=== PATIENT | male | born 1960 | race Caucasian/White ===

== ENCOUNTER 2020-07-11 20:00 | Inpatient (IN) | payer BC ==
[2020-07-11] MEDS ORDERED: SODIUM CHLORIDE 0.9% 1,000 ML IV STA (20:49)
[2020-07-11] MEDS ORDERED: HYDROmorphone 1 MG/ML 1 ML SYRINGE IVP STA ×2 (20:50→22:56)
--- NOTE | 2020-07-11 21:22 | ED ---
Back Pain HPI - General Chief Complaint: Back Pain/Injury Stated Complaint: Back pain Time Seen by Provider: 07/11/20 20:17 Source: patient Limitations: no limitations - History of Present Illness Initial Comments: Dmitri is a 59yo M with her recent medical history of hospitalization on 06/24 at which time he was found to be in ventricular tachycardia and then apparently have episodes of bradycardia, he underwent cardiac catheterization, 2 stents placed, pacemaker placed and was discharged home with a Zoll LifeVest. Patient states that he has been feeling back to normal for the past couple of days. Patient states that today he [place] some yardwork including weed eating, he suddenly developed pain in his back and flank. Pain felt like a severe muscle spasm of his entire right side of his back and flank with radiation around to his hip. No associated chest pain no the pain did radiate up to his ribs. Patient denied any palpitation shortness of breath abdominal pain nausea vomiting or change in bowel or bladder habits. No recent illness. - Related Data Home Medications Medication Instructions Recorded Confirmed Albuterol Sulfate [Proair Hfa] 1 - 2 puff INHALATION RT-Q6H PRN 07/11/20 07/11/20 Aspirin EC [Ecotrin Low Dose] 81 mg PO DAILY 07/11/20 07/11/20 Atorvastatin [Lipitor] 80 mg PO HS 07/11/20 07/11/20 Budesonide/Formoterol Fumarate 1 puff INHALATION RT-BID 07/11/20 07/11/20 [Symbicort 80-4.5 Mcg Inhaler] Ergocalciferol [Vitamin D2 (1250 1,250 mcg PO MO 07/11/20 07/11/20 Mcg = [id number] Iu)] Folic Acid 1 mg PO DAILY 07/11/20 07/11/20 Furosemide [Lasix] 40 mg PO DAILY 07/11/20 07/11/20 Metoprolol Succinate [Toprol XL] 50 mg PO DAILY 07/11/20 07/11/20 Omeprazole 20 mg PO DAILY 07/11/20 07/11/20 Prasugrel [Effient] 10 mg PO DAILY 07/11/20 07/11/20 Tofacitinib Citrate [Xeljanz Xr] 11 mg PO DAILY 07/11/20 07/11/20 lisinopriL [Zestril] 2.5 mg PO DAILY PRN 07/11/20 07/11/20 Allergies Allergy/AdvReac Type Severity Reaction Status Date / Time No Known Allergies Allergy Verified 07/11/20 20:57 Review of Systems ROS Statement: Those systems with pertinent positive or pertinent negative responses have been documented in the HPI. ROS Other: All systems not noted in ROS Statement are negative. Past Medical History Past Medical History: No Reported History History of Any Multi-Drug Resistant Organisms: None Reported Past Surgical History: Heart Catheterization With Stent, Pacemaker Past Psychological History: No Psychological Hx Reported Smoking Status: Current some day smoker Past Alcohol Use History: Occasional Past Drug Use History: None Reported General Exam - General Exam Comments Initial Comments: Physical Exam GENERAL: Patient is well-developed and well-nourished Acute distress secondary to pain Diaphoretic HENT: Normocephalic, Atraumatic. EYES: PERRL, EOMI PULMONARY: Unlabored respirations. No audible rales rhonchi or wheezing was noted. CARDIOVASCULAR: There is a regular rate and rhythm without any murmurs gallops or rubs. LifeVest in place ABDOMEN: Soft and nontender with normal bowel sounds. No pulsatile mass SKIN: Skin is clear with no lesions or rashes and otherwise unremarkable. : Deferred NEUROLOGIC: Patient is alert and oriented x3. Moving all extremities spontaneously MUSCULOSKELETAL: Normal extremities with adequate strength and full range of motion. No lower extremity swelling or edema. No calf tenderness. PSYCHIATRIC: Normal psychiatric evaluation. Limitations: no limitations Course Vital Signs 07/11/20 07/11/20 07/11/20 20:01 21:55 23:14 Temperature 97.7 F Pulse Rate 64 68 72 Respiratory 26 H 20 18 Rate Blood Pressure 137/84 136/83 129/88 O2 Sat by Pulse 92 L 95 95 Oximetry Medical Decision Making - Medical Decision Making The patient was seen and evaluated, history is obtained from the patient and at bedside and review of his my chart record from [facility] Labs and imaging were obtained Troponin is mildly elevated at 0.3 today 3 weeks ago troponin was over 1500 so it is uncertain if this is residual or due to cardiac ischemia today Lactic acid is mildly elevated Patient reported only minimal improvement in his discomfort after [address] imaging reported no acute findings Patient was treated with Dilaudid and Norflex Patient care discussed with Dr. Holder [facility] physician group who accepts admission to trend troponin and manage pain - Lab Data Result diagrams: 07/11/20 21:12 07/11/20 21:12 Lab Results 07/11/20 07/11/20 07/11/20 Range/Units 21:12 21:12 21:12 WBC 8.7 (3.8-10.6) k/uL RBC 3.43 L (4.30-5.90) m/uL Hgb 12.0 L (13.0-17.5) gm/dL Hct 34.1 L (39.0-53.0) % MCV 99.3 (80.0-100.0) fL MCH 35.0 (25.0-35.0) pg MCHC 35.2 (31.0-37.0) g/dL RDW 13.2 (11.5-15.5) % Plt Count 335 (150-450) k/uL MPV 7.5 Neutrophils % 61 % Lymphocytes % 29 % Monocytes % 7 % Eosinophils % 1 % Basophils % 1 % Neutrophils # 5.3 (1.3-7.7) k/uL Lymphocytes # 2.5 (1.0-4.8) k/uL Monocytes # 0.6 (0-1.0) k/uL Eosinophils # 0.1 (0-0.7) k/uL Basophils # 0.1 (0-0.2) k/uL PT 10.8 (9.0-12.0) sec INR 1.0 (<1.2) APTT 23.4 (22.0-30.0) sec Sodium (137-145) mmol/L Potassium (3.5-5.1) mmol/L Chloride (98-107) mmol/L Carbon Dioxide (22-30) mmol/L Anion Gap mmol/L BUN (9-20) mg/dL Creatinine (0.66-1.25) mg/dL Est GFR (CKD-EPI)AfAm (>60 ml/min/1.73 sqM) Est GFR (CKD-EPI)NonAf (>60 ml/min/1.73 sqM) Glucose (74-99) mg/dL Plasma Lactic Acid Jesus (0.7-2.0) mmol/L Calcium (8.4-10.2) mg/dL Magnesium (1.6-2.3) mg/dL Total Bilirubin (0.2-1.3) mg/dL AST (17-59) U/L ALT (4-49) U/L Alkaline Phosphatase (38-126) U/L Creatine Kinase (55-170) U/L Troponin I (0.000-0.034) ng/mL Total Protein (6.3-8.2) g/dL Albumin (3.5-5.0) g/dL Urine Color Yellow Urine Appearance Clear (Clear) Urine pH 6.0 (5.0-8.0) Ur Specific [place] 1.030 (1.001-1.035) Urine Protein Negative (Negative) Urine Glucose (UA) Negative (Negative) Urine Ketones Negative (Negative) Urine Blood Negative (Negative) Urine Nitrite Negative (Negative) Urine Bilirubin Negative (Negative) Urine Urobilinogen 2.0 (<2.0) mg/dL Ur Leukocyte Esterase Negative (Negative) 07/11/20 07/11/20 07/11/20 Range/Units 21:12 21:12 21:12 WBC (3.8-10.6) k/uL RBC (4.30-5.90) m/uL Hgb (13.0-17.5) gm/dL Hct (39.0-53.0) % MCV (80.0-100.0) fL MCH (25.0-35.0) pg MCHC (31.0-37.0) g/dL RDW (11.5-15.5) % Plt Count (150-450) k/uL MPV Neutrophils % % Lymphocytes % % Monocytes % % Eosinophils % % Basophils % % Neutrophils # (1.3-7.7) k/uL Lymphocytes # (1.0-4.8) k/uL Monocytes # (0-1.0) k/uL Eosinophils # (0-0.7) k/uL Basophils # (0-0.2) k/uL PT (9.0-12.0) sec INR (<1.2) APTT (22.0-30.0) sec Sodium 139 (137-145) mmol/L Potassium 4.2 (3.5-5.1) mmol/L Chloride 105 (98-107) mmol/L Carbon Dioxide 24 (22-30) mmol/L Anion Gap 10 mmol/L BUN 13 (9-20) mg/dL Creatinine 1.01 (0.66-1.25) mg/dL Est GFR (CKD-EPI)AfAm >90 (>60 ml/min/1.73 sqM) Est GFR (CKD-EPI)NonAf 81 (>60 ml/min/1.73 sqM) Glucose 88 (74-99) mg/dL Plasma Lactic Acid Jesus 2.3 H* (0.7-2.0) mmol/L Calcium 9.2 (8.4-10.2) mg/dL Magnesium 2.0 (1.6-2.3) mg/dL Total Bilirubin 0.5 (0.2-1.3) mg/dL AST 31 (17-59) U/L ALT 37 (4-49) U/L Alkaline Phosphatase 70 (38-126) U/L Creatine Kinase 115 (55-170) U/L Troponin I 0.346 H* (0.000-0.034) ng/mL Total Protein 6.5 (6.3-8.2) g/dL Albumin 3.7 (3.5-5.0) g/dL Urine Color Urine Appearance (Clear) Urine pH (5.0-8.0) Ur Specific [place] (1.001-1.035) Urine Protein (Negative) Urine Glucose (UA) (Negative) Urine Ketones (Negative) Urine Blood (Negative) Urine Nitrite (Negative) Urine Bilirubin (Negative) Urine Urobilinogen (<2.0) mg/dL Ur Leukocyte Esterase (Negative) - EKG Data -: EKG Interpreted by Me EKG Comments: EKG was obtained due to recent cardiac procedure presenting with back and abdominal pain, EKG obtained at 2103 rate is 73 rhythm is sinus there is a alejandro l axis, MS 1:30, QRS 88, QTC prolonged at 480 there are no acute ST elevations or depressions no evidence of acute ischemia or infarction. Disposition Clinical Impression: Mechanical back pain, Elevated troponin Disposition: ADMITTED IP TO THIS HOSP Condition: Stable Is patient prescribed a controlled substance at d/c from ED?: No Referrals: Nonstaff,Physician [Primary Care Provider] - 1-2 days
[2020-07-11 21:24] LABS: Basophils # (A) 0.1 k/uL (0-0.2); Basophils % (A) 1 %; Eosinophils # (A) 0.1 k/uL (0-0.7); Eosinophils % (A) 1 %; HCT 34.1 % (39.0-53.0); Lymphocytes # (A) 2.5 k/uL (1.0-4.8); Lymphocytes % (A) 29 %; MCHC 35.2 g/dL (31.0-37.0); MCV 99.3 fL (80.0-100.0); Mean Platelet Volume 7.5; Monocytes # (A) 0.6 k/uL (0-1.0); Monocytes % (A) 7 %; Neutrophils # (A) 5.3 k/uL (1.3-7.7); Neutrophils % (A) 61 %; Platelet Count 335 k/uL (150-450); RBC 3.43 m/uL (4.30-5.90); RDW 13.2 % (11.5-15.5); WBC 8.7 k/uL (3.8-10.6)
[2020-07-11 21:33] LABS: ALT 37 U/L (4-49); AST 31 U/L (17-59); African American GFR (CKD) >90 (>60 ml/min/1.73 sqM); Albumin 3.7 g/dL (3.5-5.0); Alkaline Phosphatase 70 U/L (38-126); Anion Gap 10 mmol/L; Blood Urea Nitrogen 13 mg/dL (9-20); Calcium 9.2 mg/dL (8.4-10.2); Carbon Dioxide 24 mmol/L (22-30); Chloride 105 mmol/L (98-107); Creatine Kinase 115 U/L (55-170); Glucose 88 mg/dL (74-99); Non-African American GFR(CKD) 81 (>60 ml/min/1.73 sqM); Potassium 4.2 mmol/L (3.5-5.1); Sodium 139 mmol/L (137-145); Total Bilirubin 0.5 mg/dL (0.2-1.3); Total Protein 6.5 g/dL (6.3-8.2)
[2020-07-11 21:42] LABS: Partial Thromboplastin Time 23.4 sec (22.0-30.0); Prothrombin Time 10.8 sec (9.0-12.0)
--- NOTE | 2020-07-11 21:53 | XR ---
EXAMINATION TYPE: XR chest 2V DATE OF EXAM: 07/11/2020 COMPARISON: NONE HISTORY: Back pain TECHNIQUE: 3 views FINDINGS: There is no heart failure nor confluent pneumonic infiltrate. Heart and mediastinum appear normal. There is left axillary pacemaker. There is no pleural effusion. IMPRESSION: No active cardiopulmonary disease. Normal heart.
[2020-07-11 22:50] LABS: Appearance,Urine Clear (Clear); Color,Urine Yellow; Protein,Urine Negative (Negative)
[2020-07-11 22:51] LABS: Bilirubin,Urine Negative (Negative); Blood,Urine Negative (Negative); Glucose,Urine (UA) Negative (Negative); Ketones,Urine Negative (Negative); Leukocyte Esterase,Urine Negative (Negative); Nitrite,Urine Negative (Negative)
[2020-07-11] MEDS ORDERED: ORPHENADRINE 30 MG/ML 2 ML VIAL IM STA (22:56)
--- NOTE | 2020-07-11 23:00 | CT ---
EXAMINATION TYPE: CT angio thor/abd pel aorta DATE OF EXAM: 07/11/2020 COMPARISON: None HISTORY: Back/chest pain. Recent sx for pacemaker, pt not able to lift LT arm, wearing defib vest. CT DLP: 1068.9 mGycm Automated exposure control for dose reduction was used. CONTRAST: Performed with IV Contrast, patient injected with 100 mL of Isovue 370. Images obtained from the thoracic inlet to the floor the pelvis with IV contrast. There are 3-D post processed images. There is some bullous emphysema and the upper lobes. The lungs are clear of consolidation. There is n o mediastinal adenopathy. Thoracic aorta is intact. There is no aneurysm or dissection. There are no hilar masses. I see no filling defects in the pulmonary arteries. Heart size is fairly normal. There is no pericardial effusion. Liver spleen stomach pancreas gallbladder appear intact. The bile ducts are not dilated. There is no adrenal mass. Kidneys show satisfactory contrast opacification. There is no hydronephrosi s. There is no retroperitoneal adenopathy. The ureters are not dilated. The bladder distends smoothly . There is no inguinal hernia. There are multiple sigmoid diverticula. There is no diverticulitis. There is no sign of thickened matias endix. The thoracic aorta is intact. There is no aneurysm or dissection. The abdominal aorta is intact. Ther e is arterial flow in the celiac artery and superior mesenteric artery. There is arterial flow in bot h renal arteries. I see no hemodynamic stenosis. There is arterial flow in the iliac and femoral pako lynnette. There is atherosclerotic plaque in the iliac arteries. No hemodynamic stenosis seen. The bony pelvis is intact. The hip joints appear intact. There is some hypertrophic spurring of the a cetabula. There is mild lumbar dextroscoliosis. There is multilevel thoracic and lumbar spondylotic c hanges. There is no significant compression deformity. Sternum is intact. I see no evidence of a rib fracture. IMPRESSION: Bullous emphysema. No suspicious pulmonary mass. No evidence of arterial aneurysm or dissection. No evidence of pulmonary embolism.
[2020-07-11] MEDS ORDERED: NITROGLYCERIN SL TABS 0.4 MG TAB SUBLINGUAL PRN (23:17)
[2020-07-12] MEDS ORDERED: KETOROLAC 15 MG/ML 1 ML VIAL IVP STA (03:19)
--- NOTE | 2020-07-12 03:28 | P.HPIM ---
History of Present Illness H&P Date: 07/11/20 Chief Complaint: left flank pain 59-year-old male with coronary artery disease Patient comes in with sudden onset left-sided flank pain radiating to the back described it as sharp severe pain 10 out of 10 in severity worse with movement denies any associated trauma happened while he was working in the yard trimming, patient denies any associated nausea vomiting fevers or chills denies any diarrhea or GI bleeding denies any hematuria or urinary changes or symptoms of her happened in the past he denies any focal neuro deficits in his lower extremities. Patient recently was at [facility] about 3 weeks ago diagnosed with ventricular tachycardia had a left heart cath found to have obstructive coronary artery disease he got 2 stents and was discharged with a LifeVest at that time it's documented that he had good left ventricular ejection fraction. Patient has been feeling well since discharge from [facility] he denies any shocking from his eye past. In the ED workup was pretty much unremarkable include CTA of the chest to rule out aortic dissection which was negative. Troponin slightly elevated at 0.34 could not compared to a baseline of highly sensitive troponin which was 1500 at [facility] Upon interviewing the patient he was still complaining of left flank pain Review of Systems Pertinent positives as noted in HPI. All other systems were reviewed and are negative Past Medical History Past Medical History: Coronary Artery Disease (CAD) History of Any Multi-Drug Resistant Organisms: None Reported Past Surgical History: Heart Catheterization With Stent, Pacemaker Date of Last Stent Placement:: 06/24/20 Type of Cardiac Device: Permanent Pacemaker Device Placement Date:: 06/24/20 Past Psychological History: No Psychological Hx Reported Smoking Status: Former smoker Past Alcohol Use History: Occasional Past Drug Use History: None Reported - Past Family History family Family Medical History: No Reported History Medications and Allergies Home Medications Medication Instructions Recorded Confirmed Type Albuterol Sulfate [Proair Hfa] 1 - 2 puff INHALATION RT-Q6H PRN 07/11/20 07/11/20 History Aspirin EC [Ecotrin Low Dose] 81 mg PO DAILY 07/11/20 07/11/20 History Atorvastatin [Lipitor] 80 mg PO HS 07/11/20 07/11/20 History Budesonide/Formoterol Fumarate 1 puff INHALATION RT-BID 07/11/20 07/11/20 History [Symbicort 80-4.5 Mcg Inhaler] Ergocalciferol [Vitamin D2 (1250 1,250 mcg PO MO 07/11/20 07/11/20 History Mcg = 93566 Iu)] Folic Acid 1 mg PO DAILY 07/11/20 07/11/20 History Furosemide [Lasix] 40 mg PO DAILY 07/11/20 07/11/20 History Metoprolol Succinate [Toprol XL] 50 mg PO DAILY 07/11/20 07/11/20 History Omeprazole 20 mg PO DAILY 07/11/20 07/11/20 History Prasugrel [Effient] 10 mg PO DAILY 07/11/20 07/11/20 History Tofacitinib Citrate [Xeljanz Xr] 11 mg PO DAILY 07/11/20 07/11/20 History lisinopriL [Zestril] 2.5 mg PO DAILY PRN 07/11/20 07/11/20 History Allergies Allergy/AdvReac Type Severity Reaction Status Date / Time No Known Allergies Allergy Verified 07/11/20 20:57 Physical Exam Vitals: Vital Signs Temp Pulse Resp BP Pulse Ox 07/12/20 00:25 18 07/11/20 23:14 72 18 129/88 95 07/11/20 21:55 68 20 136/83 95 07/11/20 20:01 97.7 F 64 26 H 137/84 92 L Intake and Output 07/11/20 07/11/20 07/12/20 14:59 22:59 06:59 Other: Weight 97.522 kg 97.522 kg Constitutional: No acute distress, conversant, pleasant Eyes: Anicteric sclerae, moist conjunctiva, Pupils equal round reactive to light ENMT: NC/AT Oropharynx clear, no erythema, or exudates Neck: Supple, FROM, no masses, or JVD No carotid bruits No thyromegaly Lungs: Clear to auscultation Clear to percussion Normal respiratory effort, no accessory muscle use Cardiovascular: Heart regular in rate and rhythm, No murmurs, gallops, or rubs No peripheral edema, LifeVest in place Abdominal: Soft, no tenderness to palpation of the left costovertebral angle Nontender, no guarding, rebound or rigidity Abdomen moving with respiration Normoactive bowel sounds No hepatomegaly, No splenomegaly No palpable mass No abdominal wall hernia noted Skin: Normal temperature, tone, texture, turgor No induration No subcutaneous nodules No rash, lesions No ulcers Extremities: No digital cyanosis No clubbing Pedal pulses intact and symmetrical Radial pulses intact and symmetrical No calf tenderness Psychiatric: Alert and oriented to person, place and time Appropriate affect fair judgement Neuro Muscles Strength 5/5 in all 4 extremities Sensation to light touch grossly present throughout Cranial nerves II-XII grossly intact No focal sensory deficits Lymphatics: no palpable cervical or supraclavicular , or inguinal lymph nodes Results CBC & Chem 7: 07/11/20 21:12 07/11/20 21:12 Labs: Abnormal Lab Results - Last 24 Hours (Table) 07/11/20 07/11/20 07/11/20 Range/Units 21:12 21:12 21:12 RBC 3.43 L (4.30-5.90) m/uL Hgb 12.0 L (13.0-17.5) gm/dL Hct 34.1 L (39.0-53.0) % Plasma Lactic Acid Jesus 2.3 H* (0.7-2.0) mmol/L Troponin I 0.346 H* (0.000-0.034) ng/mL 07/11/20 Range/Units 23:39 RBC (4.30-5.90) m/uL Hgb (13.0-17.5) gm/dL Hct (39.0-53.0) % Plasma Lactic Acid Jesus (0.7-2.0) mmol/L Troponin I 0.359 H* (0.000-0.034) ng/mL Thrombosis Risk Factor Assmnt - Choose All That Apply Any of the Below Risk Factors Present?: Yes Each Factor Represents 1 point: Age 41-60 years, Obesity (BMI >25) Thrombosis Risk Factor Assessment Total Risk Factor Score: 2 Thrombosis Risk Factor Assessment Level: Low Risk Assessment and Plan Assessment: Left flank pain rule out muscle spasms versus kidney stone Pain control with opiates Trial of one dose of Toradol Check CT abdomen and pelvis without contrast rule out kidney stones Gentle IV fluid hydration Slightly elevated troponin Recent history of coronary artery disease status post stents and ventricular tachycardia status post LifeVest Left ventricular ejection fraction reported to be good Continue cardiac meds Cardiac monitoring Trend troponins CT of the chest did not show evidence of aortic dissection Mild anemia Denies GI bleeding Monitor hemoglobin Mild elevation lactic acid Gentle IV fluid hydration as above full code DVT prophylaxis: heparin sc tid Discussed with: Patient, ER, RN Anticipated length of stay < than [address]: home A total of 75 minutes was spent on the care of this complex patient more than 50% of the time was spent in counseling and care coordination.
[2020-07-12 03:36] LABS: Cholesterol 102 mg/dL (<200); HDL Cholesterol 26 mg/dL (40-60); LDL Cholesterol,Calculated 61 mg/dL (0-99); Triglycerides 75 mg/dL (<150)
[2020-07-12] MEDS: SODIUM CHLORIDE 0.9% 1,000 ML IV SCH (04:08)
[2020-07-12] MEDS: ATORVASTATIN 80 MG TAB PO SCH ×2 (04:08→21:15)
[2020-07-12] MEDS ORDERED: MORPHINE SULFATE 4 MG/ML SYRINGE IVP STA (06:26)
--- NOTE | 2020-07-12 08:25 | CT ---
EXAMINATION TYPE: CT abdomen pelvis wo con DATE OF EXAM: 07/12/2020 COMPARISON: 07/11/2020 HISTORY: Lt flank pain CT DLP: 1073 mGycm Automated exposure control for dose reduction was used. TECHNIQUE: Helical acquisition of images was performed from the lung bases through the pelvis. FINDINGS: LUNG BASES: 3 mm nodules in the right lower lobe. There is coarsened interstitium and interstitial in filtrates. LIVER/GB: Increased density within the gallbladder likely represents vicarious excretion of contrast. PANCREAS: Nonspecific pancreatic calcifications noted. SPLEEN: No significant abnormality is seen. ADRENALS: No significant abnormality is seen. KIDNEYS: There remains contrast within the renal collecting systems from recent CT scan which limits assessment for renal calculus. No obvious hydronephrosis. ADENOPATHY: None visualized. OSSEOUS STRUCTURES: Hypertrophic and degenerative changes spine. Arthropathy of the hips. BOWEL: Bowel gas pattern nonspecific with changes of diverticulosis. OTHER: Atherosclerotic change aorta appears normal caliber. IMPRESSION: 1. No hydronephrosis. Residual contrast within the collecting systems from the recent postcontrast CT limits assessment for renal calculi. Hypodense lesion right kidney is indeterminant. 2. coarsened interstitial changes correlate for interstitial pneumonitis or chronic lung disease. Rig ht-sided subclavian millimeter nodule too small to characterize 6 month follow-up could be obtained o n a short-term basis.
[2020-07-12] MEDS ORDERED: NON FORMULARY DRUG (Aspirin Ec 81 MG Tablet.Dr) PO SCH (09:00)
[2020-07-12] MEDS ORDERED: METOPROLOL TARTRATE 25 MG TAB PO SCH (09:00)
[2020-07-12] MEDS: SYMBICORT 80-4.5 MCG INHALER INHALATION SCH ×3 (09:24→20:53)
--- NOTE | 2020-07-12 11:38 | P.PN ---
Subjective Progress Note Date: 07/12/20 Principal diagnosis: Right hip pain Patient was seen and evaluated by me this morning. He was tossing and turning in bed secondary to right hip pain. Patient said that he did not have any fall or trauma. He is rating his pain as 8 out of 10 and report that he is unable to stand up. Pain is mostly in the posterior hip/gluteal area. There is limited range of motion of the hip secondary to pain. No imaging available for me to review. Objective - Vital Signs Vital signs: Vital Signs Temp 97.7 F 07/12/20 00:03 Pulse 78 07/12/20 00:03 Resp 18 07/12/20 00:25 BP 133/76 07/12/20 00:03 Pulse Ox 93 L 07/12/20 00:03 Intake & Output 07/11/20 07/12/20 07/12/20 18:59 06:59 18:59 Weight 97.522 kg Other: # Voids 1 - Exam General: The patient is awake and alert, in no distress Eye: there is normal conjunctiva bilaterally. Neck: The neck is supple, there is no JVD. Cardiovascular: Normal S1-S2, no S3-S4, no murmurs. Respiratory: Lungs clear to auscultation bilaterally Gastrointestinal: Abdomen is soft, nontender Musculoskeletal: There is no pedal edema. Neurological:. Speech is normal. Skin: Skin is warm and dry - Labs CBC & Chem 7: 07/11/20 21:12 07/11/20 21:12 Labs: Abnormal Lab Results - Last 24 Hours (Table) 07/11/20 07/11/20 07/11/20 Range/Units 21:12 21:12 21:12 RBC 3.43 L (4.30-5.90) m/uL Hgb 12.0 L (13.0-17.5) gm/dL Hct 34.1 L (39.0-53.0) % Plasma Lactic Acid Jesus 2.3 H* (0.7-2.0) mmol/L Troponin I 0.346 H* (0.000-0.034) ng/mL HDL Cholesterol (40-60) mg/dL 07/11/20 07/12/20 07/12/20 Range/Units 23:39 02:52 02:52 RBC (4.30-5.90) m/uL Hgb (13.0-17.5) gm/dL Hct (39.0-53.0) % Plasma Lactic Acid Jseus (0.7-2.0) mmol/L Troponin I 0.359 H* 0.323 H* (0.000-0.034) ng/mL HDL Cholesterol 26 L (40-60) mg/dL Assessment and Plan Assessment: This is a 59-year-old male with past medical history noted below presented to the emergency room with right hip pain. Patient was evaluated in the E and placed on observation for further management of his medical problems noted below. 1. Right hip pain, exact etiology unclear. Patient denies any fall or trauma. I would obtain an x-ray of the right hip and lumbar spine. Start patient on Flexeril 3 times a day and [place] as needed. Consult orthopedic for further evaluation. 2. Coronary artery disease status post recent 2 stent placement with [facility]. Continue medical management. On dual antiplatelet therapy 3. Status post pacemaker implantation at [facility] 3 weeks ago currently on the LifeVest 4. Troponin elevation, most likely troponin leak secondary to recent heart cath even though unusual as heart as was 3 weeks ago. Patient denies any chest pain. 12-lead EKG showed no acute ischemic changes. I would consult cardiology for further evaluation 5. Underlying rheumatoid arthritis Today, I reviewed his medication list and lab work results urinalysis is unremarkable. Consult PT. Appreciate mergers and acquisitions consultant's recommendations.
[2020-07-12] MEDS: NON FORMULARY DRUG (Tofacitinib Citrate [Xeljanz Xr] 11 MG Tab.Er.24h) PO SCH (12:10)
[2020-07-12] MEDS: HEPARIN SODIUM,PORCINE/PF 5,000 UNIT/0.5 ML SYRINGE SQ SCH ×2 (12:10→16:25)
[2020-07-12] MEDS: METOPROLOL SUCCINATE (ER) 50 MG TAB.ER.24H PO SCH (12:20)
[2020-07-12] MEDS: FUROSEMIDE 40 MG TAB PO SCH (12:20)
[2020-07-12] MEDS: PANTOPRAZOLE 40 MG TABLET PO SCH (12:20)
[2020-07-12] MEDS: FOLIC ACID 1 MG TAB PO SCH (12:20)
[2020-07-12] MEDS: ASPIRIN 325 MG TAB PO SCH (12:20)
[2020-07-12] MEDS: PRASUGREL 10 MG TAB PO SCH (12:20)
[2020-07-12] MEDS: CYCLOBENZAPRINE 5 MG TAB PO PRN (12:25)
[2020-07-12] MEDS: HYDROcodone/APAP 5-325MG 1 EACH TAB PO PRN ×2 (12:25→16:30)
[2020-07-12] MEDS ORDERED: DEXAMETHASONE SOD PHOSPHATE 10 MG/ML 1 ML VIAL IV STA (13:15)
--- NOTE | 2020-07-12 13:15 | P.PN ---
Progress Note - Text Progress Note Date: 07/12/20 Xrays of RT hip as well as Lumbar spine and CT abdomen and pelvis reviewed. Pt has multilevel spondylotic changes from L2-S1 with vacuum discs at L3-S1, exuberent osteophytic changes and disc degeneration as well as facet hypertrophy. There are no acute fractures or dislocations noted. There is flattening of the normal lumbar lordosis due to chronic changes. Hip films do not show any fracture or dislocation. There is stenosis related to the spondylotic changes. If pt neuro status is stable would recommend flexeril, decadron, gabapentin and pain meds as needed for first line conservative treatments as well as PT/OT. If neuro symptoms persist we will order MRI of the Lumbar spine. Further recommendations pending full consult.
--- NOTE | 2020-07-12 14:22 | XR ---
EXAMINATION TYPE: XR Hip Complete RT DATE OF EXAM: 07/12/2020 COMPARISON: NONE HISTORY: Hip pain TECHNIQUE: 2 views FINDINGS: I see no fracture nor dislocation. Hip joint space is fairly normal. There is no evidence o f hip dysplasia. There is mild acetabular spurring. IMPRESSION: Negative right hip exam.
--- NOTE | 2020-07-12 14:23 | XR ---
EXAMINATION TYPE: XR lumbar spine 2 or 3V DATE OF EXAM: 07/12/2020 COMPARISON: NONE HISTORY: Pain TECHNIQUE: 4 views FINDINGS: There is hypertrophic spurring of the endplates. There is a slight dextroscoliosis. There i s no evidence of compression fracture. Posterior elements are intact. There is multilevel degenerativ e disc space narrowing. IMPRESSION: Moderately severe multilevel spondylotic changes. No fracture.
[2020-07-12] MEDS: GABAPENTIN 300 MG CAP PO SCH ×2 (16:25→21:15)
[2020-07-13] MEDS: SODIUM CHLORIDE 0.9% 1,000 ML IV SCH ×2 (01:05→06:18)
[2020-07-13] MEDS: HEPARIN SODIUM,PORCINE/PF 5,000 UNIT/0.5 ML SYRINGE SQ SCH ×4 (01:08→23:02)
[2020-07-13] MEDS: HYDROcodone/APAP 5-325MG 1 EACH TAB PO PRN ×5 (03:39→20:10)
[2020-07-13] MEDS: SYMBICORT 80-4.5 MCG INHALER INHALATION SCH ×2 (07:59→20:07)
[2020-07-13] MEDS: NON FORMULARY DRUG (Tofacitinib Citrate [Xeljanz Xr] 11 MG Tab.Er.24h) PO SCH (08:18)
[2020-07-13] MEDS: GABAPENTIN 300 MG CAP PO SCH ×3 (08:21→20:11)
[2020-07-13] MEDS: ASPIRIN 325 MG TAB PO SCH (08:21)
[2020-07-13] MEDS: PANTOPRAZOLE 40 MG TABLET PO SCH (08:21)
[2020-07-13] MEDS: FUROSEMIDE 40 MG TAB PO SCH (08:21)
[2020-07-13] MEDS: METOPROLOL SUCCINATE (ER) 50 MG TAB.ER.24H PO SCH (08:21)
[2020-07-13] MEDS: PRASUGREL 10 MG TAB PO SCH (08:21)
[2020-07-13] MEDS: FOLIC ACID 1 MG TAB PO SCH (08:24)
--- NOTE | 2020-07-13 08:37 | P.CNOR ---
History of Present Illness - [facility] Consult date: 07/13/20 Consult reason: joint pain History of present illness: 59 yo male with recent complex cardiac history presented with c/o R flank pain and hip pain that has been going on for the past 2-3 days. It has come to the point where he is unable to ambulate on this hip due to the pain. He states most of the pain is right in the groin area and does not seem to radiate. He does have some R low back/flank pain as well but this seems different than the pain in the hip. He states he cannot walk on the hip, it hurts to move and he feels better when he lays on that side with the hip down. Denies any numbness/tingling. Denies any f/c/sob/cp at this time. States recent pacemaker placement as well as life vest and stent placement at . He has never injured this hip in the past, or recently. Review of Systems 14 points review of systems completed and as stated in HPI, all other systems reviewed are negative. Past Medical History Past Medical History: Coronary Artery Disease (CAD) History of Any Multi-Drug Resistant Organisms: None Reported Past Surgical History: Heart Catheterization With Stent, Pacemaker Date of Last Stent Placement:: 06/24/20 Type of Cardiac Device: Permanent Pacemaker Device Placement Date:: 06/24/20 Past Psychological History: No Psychological Hx Reported Smoking Status: Former smoker Past Alcohol Use History: Occasional Past Drug Use History: None Reported - Past Family History family Family Medical History: No Reported History Medications and Allergies Home Medications Medication Instructions Recorded Confirmed Type Albuterol Sulfate [Proair Hfa] 1 - 2 puff INHALATION RT-Q6H PRN 07/11/20 07/11/20 History Aspirin EC [Ecotrin Low Dose] 81 mg PO DAILY 07/11/20 07/11/20 History Atorvastatin [Lipitor] 80 mg PO HS 07/11/20 07/11/20 History Budesonide/Formoterol Fumarate 1 puff INHALATION RT-BID 07/11/20 07/11/20 History [Symbicort 80-4.5 Mcg Inhaler] Ergocalciferol [Vitamin D2 (1250 1,250 mcg PO MO 07/11/20 07/11/20 History Mcg = 34810 Iu)] Folic Acid 1 mg PO DAILY 07/11/20 07/11/20 History Furosemide [Lasix] 40 mg PO DAILY 07/11/20 07/11/20 History Metoprolol Succinate [Toprol XL] 50 mg PO DAILY 07/11/20 07/11/20 History Omeprazole 20 mg PO DAILY 07/11/20 07/11/20 History Prasugrel [Effient] 10 mg PO DAILY 07/11/20 07/11/20 History Tofacitinib Citrate [Xeljanz Xr] 11 mg PO DAILY 07/11/20 07/11/20 History lisinopriL [Zestril] 2.5 mg PO DAILY PRN 07/11/20 07/11/20 History Allergies Allergy/AdvReac Type Severity Reaction Status Date / Time No Known Allergies Allergy Verified 07/11/20 20:57 Physical Examination Osteopathic Statement: *. No significant issues noted on an osteopathic structural exam other than those noted in the History and Physical/Consult. Patient is alert and oriented 3 appears well-nourished well-hydrated is in no acute distress. They does not appear septic. On exam the patient has no tenderness to palpation of her thoracic or lumbar spine. There is no edema or ballottement sign. Lower extremities with 5 out of 5 strength in all major muscle groups Upper extremities show 5/5 strength in all major muscle groups. There is FROM that is painless of the b/l UE and LE in all major joints. They are intact to light touch sensation in L2 to S1 nerve distribution. DTR 2/4 in all upper and lower Patient has palpable dorsalis pedis was posterior tibial pulses. Compartments are soft and compressible. Patient shows a negative Homans, Lucas's, negative Babinski's negative clonus bilaterally. negative straight leg raise bilaterally. No tensioning signs. Cranial nerves II through XII are grossly intact. Overall alignment is well-maintained in the sagittal coronal planes. Patient does have a lot of pain with logroll of the right hip as well as a positive Silverskiold test on the side. He does not have pain in the left hip like this. The patient feels better when he is laying on his right hand side when his S Shah back pain he has good strength in his lower extremity however and there is no focal deficits noted. The pain does not radiate. Patient does have some pain in the right flank to palpation as well as the paraspinal musc ulature of the right. He has no ballottement or tenderness to palpation over the midline spine thoracic or lumbar regions. Results Xrays of RT hip as well as Lumbar spine and CT abdomen and pelvis reviewed. Pt has multilevel spondylotic changes from L2-S1 with vacuum discs at L3-S1, exuberent osteophytic changes and disc degeneration as well as facet hypertrophy. There are no acute fractures or dislocations noted. There is flattening of the normal lumbar lordosis due to chronic changes. Hip films do not show any fracture or dislocation. There is stenosis related to the spondylotic changes. - Labs Labs: H & H 07/11/20 Range/Units 21:12 Hgb 12.0 L (13.0-17.5) gm/dL Hct 34.1 L (39.0-53.0) % Coagulation 07/11/20 Range/Units 21:12 INR 1.0 (<1.2) Result Diagrams: 07/11/20 21:12 07/11/20 21:12 Assessment and Plan Assessment: 59-year-old male with right hip pain 1. No hip fracture evident, b/l Hip OA severe. 2. Lumbar spondylosis with low back pain 3. Rule out infection 4. Complex medical history Plan: -Appreciate consult -Obtain sed rate CRP and trend labs -Consider IR aspiration and injection of right hip pending these results -PT OT -Continue with pain control regiment including gabapentin and Flexeril [place] and Decadron as well as Toradol -Serial orthopedic exams, we will follow Time with Patient: Greater than 30
--- NOTE | 2020-07-13 10:17 | P.CRDCN ---
History of Present Illness History of present illness: HISTORY OF PRESENTING ILLNESS This is a pleasant 59-year-old male past medical history significant for a syncopal episode status post pacemaker implantation 3 weeks ago, coronary artery disease status post two-vessel PCI 3 weeks ago, Recent Lifevest initiation. He follows with route manager at [facility]. However, he is planning on following up with a route manager in [place] once he establishes care there. We have been asked to see in consultation for elevated troponin. 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 He went to [facility], was diagnosed with having ventricular tachycardia. He had a pacemaker placed. He also underwent left cardiac catheterization that revealed obstructive coronary artery disease and he underwent 2 stents. He was discharged with a lifevest. He presents to the emergency department with c omplaints of left-sided flank and right sided hip pain that has been worsening. He denies chest pain, palpitations, shortness of breath, lightheadedness, dizziness, any further syncopal episodes. He also denies any shocking from his lifevest. EKG revealed sinus rhythm, heart rate 73, no significant STT wave abnormalities, QTc 480ms, Telemetry tracings indicate atrial paced, HR 60s, occasional PVC. DIAGNOSTICS Thoracic aorta CT- no pulmonary embolism. some bullous emphysema in the upper lobes, multiple sigmoid diverticulitis Abd/Pelvis CT- no hydronephrosis, hypodense lesion right kidney isn't determinant. Coarsened interstitial changes and correlate for instruction pneumonitis or chronic lung disease. Right-sided subclavian millimeter nodule too small to characterize 6 months follow-up should be to obtain a short-term basis. Hip Xray, rightno fracture seen Lumbar Spine Xray-moderate to severe multilevel spondylitic changes. No fracture Chest xray heart size is normal, no active cardiopulmonary disease. Laboratory reviewed, WBC 8.7, hemoglobin 12, platelets 335, troponin 0.33, sodium 139, potassium 4.2, serum creatinine 1.01, BUN/creatinine 13, UA negative, COVID-19 negative, triglycerides 75, cholesterol 101, LDL 61, HDL 26 Current cardiac medications include lisinopril 2.5 mg daily, has a grilled 20 mg daily, metoprolol succinate 50 mg daily, Lasix 40 mg daily, atorvastatin 80 mg nightly, aspirin 81 mg daily. REVIEW OF SYSTEMS At the time of my exam: CONSTITUTIONAL: Denies fever or chills. CARDIOVASCULAR: Denies chest pain, shortness of breath, orthopnea, PND or palpitations. RESPIRATORY: Denies cough. GASTROINTESTINAL: Denies abdominal pain, diarrhea, constipation, nausea or vomiting. MUSCULOSKELETAL: Right hip pain, left lower back pain. NEUROLOGIC: Denies numbness, tingling, headacbe or weakness. ENDOCRINE: Denies fatigue, weight change, polydipsia or polyurina. GENITOURINARY: Denies burning, hematuria or urgency with micturation. HEMATOLOGIC: Denies history of anemia or bleeding. PHYSICAL EXAMINATION Blood pressure 140/86 heart rate 66 afebrile and maintaining oxygen saturation 96% on room air CONSTITUTIONAL: No apparent distress. HEENT: Head is normocephalic. Pupils are equal, round. Sclerae anicteric. Mucous membranes of the mouth are moist. No JVD. No carotid bruit. CHEST EXAMINATION: Lungs are clear to auscultation. No chest wall tenderness is noted on palpation or with deep breathing. HEART EXAMINATION: Regular rate and rhythm. S1, S2 heard. No murmurs, gallops or rub. ABDOMEN: Soft, nontender. Positive bowel sounds. EXTREMITIES: 2+ peripheral pulses, no lower extremity edema and no calf tenderness. NEUROLOGIC EXAMINATION: Patient is awake, alert and oriented x3. ASSESSMENT Syncopal episode s/p pacemaker implantation at [facility] Coronary artery disease s/p 2 vessel PCI at [facility] Lifevest Device - Patient most likely has systolic heart failure with reduced ejection fracture Elevated troponin, no indicative of acute myocardial injury PLAN Pacemaker information from patient reveals he has a Medtronic dual chamber pacemaker. Restart all home medications for the patient From cardiology perspective, no intervention or further testing indicated. Patient should follow up with route manager at [facility]. We will follow the patient as needed. Please reach out for further questions or concerns. Nurse Practitioner note has been reviewed, I agree with a documented findings and plan of care. Patient was seen and examined. Past Medical History Past Medical History: Coronary Artery Disease (CAD) History of Any Multi-Drug Resistant Organisms: None Reported Past Surgical History: Heart Catheterization With Stent, Pacemaker Date of Last Stent Placement:: 06/24/20 Type of Cardiac Device: Permanent Pacemaker Device Placement Date:: 06/24/20 Past Psychological History: No Psychological Hx Reported Smoking Status: Former smoker Past Alcohol Use History: Occasional Past Drug Use History: None Reported - Past Family History family Family Medical History: No Reported History Medications and Allergies Home Medications Medication Instructions Recorded Confirmed Type Albuterol Sulfate [Proair Hfa] 1 - 2 puff INHALATION RT-Q6H PRN 07/11/20 07/11/20 History Aspirin EC [Ecotrin Low Dose] 81 mg PO DAILY 07/11/20 07/11/20 History Atorvastatin [Lipitor] 80 mg PO HS 07/11/20 07/11/20 History Budesonide/Formoterol Fumarate 1 puff INHALATION RT-BID 07/11/20 07/11/20 History [Symbicort 80-4.5 Mcg Inhaler] Ergocalciferol [Vitamin D2 (1250 1,250 mcg PO MO 07/11/20 07/11/20 History Mcg = 40090 Iu)] Folic Acid 1 mg PO DAILY 07/11/20 07/11/20 History Furosemide [Lasix] 40 mg PO DAILY 07/11/20 07/11/20 History Metoprolol Succinate [Toprol XL] 50 mg PO DAILY 07/11/20 07/11/20 History Omeprazole 20 mg PO DAILY 07/11/20 07/11/20 History Prasugrel [Effient] 10 mg PO DAILY 07/11/20 07/11/20 History Tofacitinib Citrate [Xeljanz Xr] 11 mg PO DAILY 07/11/20 07/11/20 History lisinopriL [Zestril] 2.5 mg PO DAILY PRN 07/11/20 07/11/20 History Allergies Allergy/AdvReac Type Severity Reaction Status Date / Time No Known Allergies Allergy Verified 07/11/20 20:57 Physical Exam Vitals: Vital Signs Temp Pulse Resp BP Pulse Ox 07/13/20 08:00 66 16 07/13/20 07:59 96 07/13/20 07:00 97.4 F L 66 16 140/86 94 L 07/13/20 02:00 98.2 F 61 19 122/69 96 07/12/20 19:27 98.3 F 62 16 122/72 95 07/12/20 14:00 98.8 F 65 16 132/75 94 L Intake and Output 05/07/13/20 07/13/20 22:59 06:59 14:59 Output Total 400 600 Balance -400 -600 Output: Urine 400 600 Other: # Voids 1 1 Results 07/11/20 21:12 07/11/20 21:12 Current Medications Generic Name Dose Route Start Last Admin Trade Name Freq PRN Reason Stop Dose Admin Hydrocodone Bitart/Acetaminophen 1 each 07/12/20 11:30 07/13/20 03:39 Hydrocodone/Apap 5-325mg 1 Each Tab PO 1 each Q4HR PRN Administration Pain Aspirin 81 mg 07/14/20 09:00 Aspirin 81 Mg PO DAILY VIVIAN Atorvastatin Calcium 80 mg 07/12/20 02:34 07/12/20 21:15 Atorvastatin 80 Mg Tab PO 80 mg HS VIVIAN Administration Budesonide/Formoterol Fumarate 1 puff 07/12/20 08:00 07/13/20 07:59 Symbicort 80-4.5 Mcg Inhaler INHALATION 1 puff RT-BID VIVIAN Administration Cyclobenzaprine HCl 5 mg 07/12/20 11:29 07/12/20 12:25 Cyclobenzaprine 5 Mg Tab PO 5 mg TID PRN Administration Muscle Spasm Folic Acid 1 mg 07/12/20 09:00 07/13/20 08:24 Folic Acid 1 Mg Tab PO 1 mg DAILY VIVIAN Administration Furosemide 40 mg 07/12/20 09:00 07/13/20 08:21 Furosemide 40 Mg Tab PO 40 mg DAILY VIVIAN Administration Gabapentin 300 mg 07/12/20 16:00 07/13/20 08:21 Gabapentin 300 Mg Cap PO 300 mg TID VIVIAN Administration Heparin Sodium (Porcine) 5,000 unit 07/12/20 08:00 07/13/20 08:21 Heparin Sodium,Porcine/Pf 5,000 Unit/0.5 Ml Syringe SQ 5,000 unit Q8HR VIVIAN Administration Lisinopril 2.5 mg 07/12/20 03:00 Lisinopril 2.5 Mg Tab PO DAILY PRN Blood Pressure - High Metoprolol Succinate 50 mg 07/12/20 09:00 07/13/20 08:21 Metoprolol Succinate (Er) 50 Mg Tab.Er.24h PO 50 mg DAILY VIVIAN Administration Nitroglycerin 0.4 mg 07/11/20 23:17 Nitroglycerin Sl Tabs 0.4 Mg Tab SUBLINGUAL Q5M PRN Chest Pain Non-Formulary Medication 11 mg 07/12/20 09:00 07/13/20 08:18 Tofacitinib Citrate [Xeljanz Xr] PO Not Given DAILY VIVIAN Pantoprazole Sodium 40 mg 07/12/20 09:00 07/13/20 08:21 Pantoprazole 40 Mg Tablet PO 40 mg DAILY VIVIAN Administration Prasugrel 10 mg 07/12/20 09:00 07/13/20 08:21 Prasugrel 10 Mg Tab PO 10 mg DAILY VIVIAN Administration Intake and Output 07/12/20 07/13/20 07/13/20 22:59 06:59 14:59 Output Total 400 600 Balance -400 -600 Output: Urine 400 600 Other: # Voids 1 1 07/11/20 21:12 07/11/20 21:12
--- NOTE | 2020-07-13 11:01 | CT ---
EXAMINATION TYPE: CT hip RT wo con DATE OF EXAM: 07/13/2020 COMPARISON: CT aorta same day HISTORY: Abnormal CT, right hip pain Automated exposure control for dose reduction was used. FINDINGS: No acute fracture or dislocation in the right hip. Mild to moderate axial joint space loss and acetab ular spurring. Multiple bulk in the right thigh is maintained. No groin hernia or adenopathy. No sign ificant plaque or stenosis in the arterial system at this level. IMPRESSION: As above.
--- NOTE | 2020-07-13 12:57 | P.PN ---
Subjective Progress Note Date: 07/13/20 Principal diagnosis: Right hip pain Patient is still complaining of a lot of pain in his hip. He was unable to get up with physical therapy this morning secondary to uncontrolled pain. He is getting Rimrock and received a dose of IV Decadron yesterday. Objective - Vital Signs Vital signs: Vital Signs Temp 97.4 F L 07/13/20 07:00 Pulse 66 07/13/20 08:00 Resp 16 07/13/20 08:00 BP 140/86 07/13/20 07:00 Pulse Ox 96 07/13/20 07:59 Intake & Output 07/12/20 07/13/20 07/13/20 18:59 06:59 18:59 Output Total 400 600 Balance -400 -600 Output: Urine 400 600 Other: # Voids 1 1 - Exam General: The patient is awake and alert, in no distress Eye: there is normal conjunctiva bilaterally. Neck: The neck is supple, there is no JVD. Cardiovascular: Normal S1-S2, no S3-S4, no murmurs. Respiratory: Lungs clear to auscultation bilaterally Gastrointestinal: Abdomen is soft, nontender Musculoskeletal: There is no pedal edema. Neurological:. Speech is normal. Skin: Skin is warm and dry - Labs CBC & Chem 7: 07/11/20 21:12 07/11/20 21:12 Labs: Abnormal Lab Results - Last 24 Hours (Table) 07/13/20 Range/Units 08:44 ESR 41 H (0-15) mm/hr Assessment and Plan Assessment: This is a 59-year-old male with past medical history noted below presented to the emergency room with right hip pain. Patient was evaluated in the E and placed on observation for further management of his medical problems noted below. 1. Right hip pain, exact etiology unclear. Patient denies any fall or trauma. X-ray and computed tomography scan of the hip was no acute fracture. X-ray of the lumbar spine showed lumbar spondylosis. Started patient on Flexeril 3 times a day and Rimrock as needed. Continue with Medrol Dosepak. Consulted orthopedic, appreciate recommendations. Physical therapy 2. Coronary artery disease status post recent 2 stent placement with [facility]. Continue medical management. On dual antiplatelet therapy 3. Status post pacemaker implantation at [facility] 3 weeks ago currently on the LifeVest 4. Troponin elevation, most likely troponin leak secondary to recent heart cath even though unusual as heart as was 3 weeks ago. Patient denies any chest pain. 12-lead EKG showed no acute ischemic changes. I consulted cardiology for further evaluation 5. Underlying rheumatoid arthritis Today, I reviewed his medication list and lab work results urinalysis is unremarkable. Pain is still not well controlled. Patient is unable to ambulate. Increased Rimrock dose from 5 to 10/325 mg every 4 hours.
[2020-07-13] MEDS: methylPREDNISolone 4 MG TAB TAPER PO SCH (13:01)
[2020-07-13] MEDS: CYCLOBENZAPRINE 5 MG TAB PO PRN (13:01)
--- NOTE | 2020-07-13 15:45 | P.PN ---
Progress Note - Text Progress Note Date: 07/13/20 Pt was reevaluated. still having a lot of hip pain was unable to participate in therapy. CT shows no fracture. We will order MRI of his pelvis and hips as well as consult IR for aspiration of the Right hip w/wo injection depending on fluid appearance and suspicion for infection. Pt wbc are low but ESR is elevated at 44. CRP is pending. Pt did just have recent surgery and stent placement which could alter these numbers and is on a medication that can decrease his white count. Due to the continued pain we will continue to work up for possible infection vs OA flare.
[2020-07-13] MEDS: ATORVASTATIN 80 MG TAB PO SCH (20:10)
[2020-07-14] MEDS: HYDROcodone/APAP 5-325MG 1 EACH TAB PO PRN ×3 (07:17→16:45)
[2020-07-14] MEDS: SYMBICORT 80-4.5 MCG INHALER INHALATION SCH ×2 (07:51→20:05)
[2020-07-14] MEDS: FOLIC ACID 1 MG TAB PO SCH (08:53)
[2020-07-14] MEDS: ASPIRIN 81 MG PO SCH (08:53)
[2020-07-14] MEDS: METOPROLOL SUCCINATE (ER) 50 MG TAB.ER.24H PO SCH (08:53)
[2020-07-14] MEDS: GABAPENTIN 300 MG CAP PO SCH ×3 (08:53→21:04)
[2020-07-14] MEDS: FUROSEMIDE 40 MG TAB PO SCH (08:53)
[2020-07-14] MEDS: PANTOPRAZOLE 40 MG TABLET PO SCH (08:53)
[2020-07-14] MEDS: HEPARIN SODIUM,PORCINE/PF 5,000 UNIT/0.5 ML SYRINGE SQ SCH ×2 (08:53→15:22)
[2020-07-14] MEDS: methylPREDNISolone 4 MG TAB TAPER PO SCH (08:54)
[2020-07-14] MEDS: PRASUGREL 10 MG TAB PO SCH (08:55)
[2020-07-14] MEDS: NON FORMULARY DRUG (Tofacitinib Citrate [Xeljanz Xr] 11 MG Tab.Er.24h) PO SCH (08:55)
--- NOTE | 2020-07-14 11:38 | P.PN ---
Subjective Progress Note Date: 07/14/20 Principal diagnosis: Right hip pain Patient seen and examined this morning. He continues to have right hip pain that prevents him from ambulating or working with therapy. He states when he is laying here on his right side that it does feel better but that whenever he moves a lot of pain in his hip. He denies any fevers or chills he denies any radiating pain he denies any pain that comes down his leg and foot. Objective - Vital Signs Vital signs: Vital Signs Temp 97.5 F L 07/14/20 07:00 Pulse 71 07/14/20 07:00 Resp 16 07/14/20 08:00 BP 133/86 07/14/20 07:00 Pulse Ox 95 07/14/20 07:51 Intake & Output 07/13/20 07/14/20 07/14/20 18:59 06:59 18:59 Intake Total 240 Output Total 1100 350 900 Balance -1100 -350 -660 Intake: Oral 240 Output: Urine 1100 350 900 Other: # Voids 1 - Exam Patient is alert and oriented 3 appears well-nourished well-hydrated is in no acute distress. They does not appear septic. On exam the patient has no tenderness to palpation of her thoracic or lumbar spine. There is no edema or ballottement sign. Lower extremities with 5 out of 5 strength in all major muscle groups Upper extremities show 5/5 strength in all major muscle groups. There is FROM that is painless of the b/l UE and LE in all major joints. They are intact to light touch sensation in L2 to S1 nerve distribution. DTR 2/4 in all upper and lower Patient has palpable dorsalis pedis was posterior tibial pulses. Compartments are soft and compressible. Patient shows a negative Homans, Lucas's, negative Babinski's negative clonus bilaterally. negative straight leg raise bilaterally. No tensioning signs. Cranial nerves II through XII are grossly intact. Overall alignment is well-maintained in the sagittal coronal planes. Patient does have a lot of pain with logroll of the right hip as well as a positive Silverskiold test on the side. He does not have pain in the left hip like this. The patient feels better when he is laying on his right hand side when his S Shah back pain he has good strength in his lower extremity however and there is no focal deficits noted. The pain does not radiate. Patient does have some pain in the right flank to palpation as well as the paraspinal musculature of the right. He has no ballottement or tenderness to palpation over the midline spine thoracic or lumbar regions. - Psychiatric Psychiatric: Present: A&O x's 3 - Labs CBC & Chem 7: 07/11/20 21:12 07/11/20 21:12 Labs: Abnormal Lab Results - Last 24 Hours (Table) 07/12/20 Range/Units 02:52 C-Reactive Protein 1.6 H (<1.0) mg/dL - Imaging and Cardiology CT of the hip was reviewed there is no evident acute fracture or dislocation there is no evidence of fluid within the hip at this time. The remainder of the bony osseous structures are within acceptable limits Assessment and Plan Assessment: 59-year-old male with right hip pain 1. No hip fracture evident, b/l Hip OA severe. 2. Lumbar spondylosis with low back pain, no radiculopathy 3. r/o fracture vs OA flare. Doubt infection. 4. Complex medical history Plan: -Discussed with the patient MRI of the hips and pelvis however due to the patient's pacemaker we are not able to do this at our facility we contacted to other facilities including [facility] and [place] who are able to do this procedure with a pacemaker however since the patient had stents placed 3 weeks ago there is a hard stop for MRI until 6 weeks post stent placement. He is unable to have MRI due to this. Radiology reviewed his images they do not feel that there is any fracture or fluid on the hip that they can aspirate. His sed rate and CRP are marginally elevated however this could be due to his recent cardiac procedures and history. I am unable to rule out occult fracture of the right hip at this time. Being that there was no trauma to the hip it is less likely that he has a fracture as he was simply doing extensive yard work before he sat down and this was hurting him there is more likely an osteoarthritic flare. We will consult pain management for an aspiration injection of the hip on the right. -Nonweightbearing right lower extremity with crutches -Consider IR aspiration and injection of right hip pending these results -PT OT -Continue with pain control regiment including gabapentin and Flexeril [place] and Decadron as well as Toradol -Serial orthopedic exams, we will follow Time with Patient: Greater than 30
--- NOTE | 2020-07-14 11:39 | P.DS ---
Providers Date of admission: 07/11/20 23:17 Expected date of discharge: 07/14/20 Attending physician: Anil Harris MD Consults: 07/12/20 11:30 Consult Physician Routine Consulting Provider: Cholo Del Real Consult Reason/Comments: back pain Do you want consulting provider notified?: Yes 07/12/20 11:36 Consult Physician Routine Consulting Provider: Rama Andre Consult Reason/Comments: Troponin elevation Do you want consulting provider notified?: Yes 07/14/20 09:58 Consult Physician Urgent Consulting Provider: Margaret Salamanca Consult Reason/Comments: aspiration injection Right hip Do you want consulting provider notified?: Yes Primary care physician: Physician Nonstaff Hospital Course: This is a 59-year-old male with past medical history noted below presented to the emergency room with right hip pain. Patient was evaluated in the E and placed on observation for further management of his medical problems noted below. 1. Right hip pain, exact etiology unclear. Patient denies any fall or trauma. X-ray and computed tomography scan of the hip was no acute fracture. X-ray of the lumbar spine showed lumbar spondylosis. Started patient on Flexeril 3 times a day and [place] as needed. Continue with Medrol Dosepak. Consulted orthopedic, appreciate recommendations. Physical therapy 2. Coronary artery disease status post recent 2 stent placement with [facility]. Continue medical management. On dual antiplatelet therapy 3. Status post pacemaker implantation at [facility] 3 weeks ago currently on the LifeVest 4. Troponin elevation, most likely troponin leak secondary to recent heart cath. Patient denies any chest pain. 12-lead EKG showed no acute ischemic changes. He was seen and evaluated by our financial management consultant. Plan to follow-up with [facility] cardiology as directed. 5. Underlying rheumatoid arthritis Patient pain improved significantly throughout his hospital stay. He was offered a walker but said that he does not want one and he will use his walker. He was advised to do hip stretching exercise. I would hospital MRI is not compatible with his pacemaker. If pain is not improving outpatient MRI may be scheduled. Patient Condition at Discharge: Stable Plan - Discharge Summary New Discharge Prescriptions: New methylPREDNISolone Dose Pack [Medrol Dose Pack] 4 mg PO DIRECTED #21 package Cyclobenzaprine [Flexeril] 5 mg PO TID PRN #15 tab PRN Reason: Muscle Spasm HYDROcodone/APAP 5-325MG [[place] 5-325] 2 each PO Q4HR PRN #12 tab PRN Reason: Pain Continue Omeprazole 20 mg PO DAILY Aspirin EC [Ecotrin Low Dose] 81 mg PO DAILY lisinopriL [Zestril] 2.5 mg PO DAILY PRN PRN Reason: Blood Pressure - High Budesonide/Formoterol Fumarate [Symbicort 80-4.5 Mcg Inhaler] 1 puff INHALATION RT-BID Prasugrel [Effient] 10 mg PO DAILY Albuterol Sulfate [Proair Hfa] 1 - 2 puff INHALATION RT-Q6H PRN PRN Reason: Shortness Of Breath Tofacitinib Citrate [Xeljanz Xr] 11 mg PO DAILY Metoprolol Succinate [Toprol XL] 50 mg PO DAILY Ergocalciferol [Vitamin D2 (1250 Mcg = 35555 Iu)] 1,250 mcg PO MO Atorvastatin [Lipitor] 80 mg PO HS Furosemide [Lasix] 40 mg PO DAILY Folic Acid 1 mg PO DAILY Discharge Medication List Albuterol Sulfate [Proair Hfa] 1 - 2 puff INHALATION RT-Q6H PRN 07/11/20 [History] Aspirin EC [Ecotrin Low Dose] 81 mg PO DAILY 07/11/20 [History] Atorvastatin [Lipitor] 80 mg PO HS 07/11/20 [History] Budesonide/Formoterol Fumarate [Symbicort 80-4.5 Mcg Inhaler] 1 puff INHALATION RT-BID 07/11/20 [History] Ergocalciferol [Vitamin D2 (1250 Mcg = 50184 Iu)] 1,250 mcg PO MO 07/11/20 [History] Folic Acid 1 mg PO DAILY 07/11/20 [History] Furosemide [Lasix] 40 mg PO DAILY 07/11/20 [History] Metoprolol Succinate [Toprol XL] 50 mg PO DAILY 07/11/20 [History] Omeprazole 20 mg PO DAILY 07/11/20 [History] Prasugrel [Effient] 10 mg PO DAILY 07/11/20 [History] Tofacitinib Citrate [Xeljanz Xr] 11 mg PO DAILY 07/11/20 [History] lisinopriL [Zestril] 2.5 mg PO DAILY PRN 07/11/20 [History] Cyclobenzaprine [Flexeril] 5 mg PO TID PRN #15 tab 07/14/20 [Rx] HYDROcodone/APAP 5-325MG [[place] 5-325] 2 each PO Q4HR PRN #12 tab 07/14/20 [Rx] methylPREDNISolone Dose Pack [Medrol Dose Pack] 4 mg PO DIRECTED #21 package 07/14/20 [Rx] Follow up Appointment(s)/Referral(s): Nonstaff,Physician [Primary Care Provider] - 1-2 days Activity/Diet/Wound Care/Special Instructions: Followup with Jonathon Aparicio Paint Roller Assembler Discharge Disposition: HOME SELF-CARE
[2020-07-14] MEDS: Tofacitinib Citrate [Xeljanz Xr] 11 MG Tab.Er.24h PO SCH (13:36)
[2020-07-14] MEDS: ATORVASTATIN 80 MG TAB PO SCH (21:04)
[2020-07-15] MEDS: HEPARIN SODIUM,PORCINE/PF 5,000 UNIT/0.5 ML SYRINGE SQ SCH ×4 (00:12→23:44)
[2020-07-15] MEDS: HYDROcodone/APAP 5-325MG 1 EACH TAB PO PRN ×5 (02:19→23:45)
[2020-07-15] MEDS: SYMBICORT 80-4.5 MCG INHALER INHALATION SCH ×2 (08:28→19:35)
[2020-07-15] MEDS: PANTOPRAZOLE 40 MG TABLET PO SCH (08:32)
[2020-07-15] MEDS: ASPIRIN 81 MG PO SCH (08:32)
[2020-07-15] MEDS: FUROSEMIDE 40 MG TAB PO SCH (08:32)
[2020-07-15] MEDS: GABAPENTIN 300 MG CAP PO SCH ×3 (08:33→21:37)
[2020-07-15] MEDS: PRASUGREL 10 MG TAB PO SCH (08:33)
[2020-07-15] MEDS: METOPROLOL SUCCINATE (ER) 50 MG TAB.ER.24H PO SCH (08:33)
[2020-07-15] MEDS: FOLIC ACID 1 MG TAB PO SCH (08:33)
[2020-07-15] MEDS: methylPREDNISolone 4 MG TAB TAPER PO SCH (08:33)
[2020-07-15] MEDS: Tofacitinib Citrate [Xeljanz Xr] 11 MG Tab.Er.24h PO SCH (08:34)
[2020-07-15] MEDS: CYCLOBENZAPRINE 5 MG TAB PO PRN ×2 (11:03→21:36)
[2020-07-15] MEDS ORDERED: HYDROmorphone 1 MG/ML 1 ML SYRINGE IVP STA (11:03)
--- NOTE | 2020-07-15 11:51 | P.PN ---
Subjective Progress Note Date: 07/15/20 Principal diagnosis: Right hip pain Pt s/e still having pain. Not able to ambulate well he is using a walker. Bone scan scheduled for today for bone scan. Objective - Vital Signs Vital signs: Vital Signs Temp 97.4 F L 07/15/20 07:00 Pulse 66 07/15/20 08:00 Resp 16 07/15/20 07:00 BP 146/87 07/15/20 07:00 Pulse Ox 97 07/15/20 07:00 Intake & Output 07/14/20 07/15/20 07/15/20 18:59 06:59 18:59 Intake Total 490 240 300 Output Total 1400 250 250 Balance -910 -10 50 Intake: Oral 490 240 300 Output: Urine 1400 250 250 Other: Voiding Method Urinal # Voids 1 1 - Exam Patient is alert and oriented 3 appears well-nourished well-hydrated is in no acute distress. They does not appear septic. On exam the patient has no tenderness to palpation of her thoracic or lumbar spine. There is no edema or ballottement sign. Lower extremities with 5 out of 5 strength in all major muscle groups Upper extremities show 5/5 strength in all major muscle groups. There is FROM that is painless of the b/l UE and LE in all major joints. They are intact to light touch sensation in L2 to S1 nerve distribution. DTR 2/4 in all upper and lower Patient has palpable dorsalis pedis was posterior tibial pulses. Compartments are soft and compressible. Patient shows a negative Homans, Lucas's, negative Babinski's negative clonus bilaterally. negative straight leg raise bilaterally. No tensioning signs. Cranial nerves II through XII are grossly intact. Overall alignment is well-maintained in the sagittal coronal planes. Patient does have a lot of pain with logroll of the right hip as well as a positive [place] test on the side. He does not have pain in the left hip like this. The patient feels better when he is laying on his right hand side when his S Shah back pain he has good strength in his lower extremity however and there is no focal deficits noted. The pain does not radiate. Patient does have some pain in the right flank to palpation as well as the paraspinal musculature of the right. He has no ballottement or tenderness to palpation over the midline spine thoracic or lumbar regions. - Labs CBC & Chem 7: 07/11/20 21:12 07/11/20 21:12 Assessment and Plan Assessment: 59-year-old male with right hip pain 1. No hip fracture evident, b/l Hip OA severe. 2. Lumbar spondylosis with low back pain, no radiculopathy 3. r/o fracture vs OA flare. Doubt infection. 4. Complex medical history Plan: -Await bone scan. -Nonweightbearing right lower extremity with crutches -Consider IR aspiration and injection of right hip pending these results -PT OT -Continue with pain control regiment including gabapentin and Flexeril Errol and Decadron as well as Toradol -Serial orthopedic exams, we will follow
--- NOTE | 2020-07-15 13:56 | NM ---
EXAMINATION TYPE: NM bone scan whole body DATE OF EXAM: 07/15/2020 COMPARISON: CT plain film 07/12/2020 HISTORY: Right hip pain for 4 days Delayed whole-body scanning was performed following the injection of 23.0 mCi Tc 99m MDP. Images acq uired 4.5 hours post injection. FINDINGS: Spinal curvature is again noted. Uptake within the lumbar spine is likely due to degenerative change. Some mild uptake within the right hip likely due to osteoarthritic change. Soft tissue uptake is rem arkable for some mild increased uptake at the level of the right hip as compared to the left. CT scan shows the bony acetabular margin posteriorly and laterally show a lucency,, this may not be acute ho wever, difficult to exclude a hairline fracture. There is uptake present along the greater trochanter and lesser trochanter which is somewhat punctate on the left, no corresponding fracture evident. Uptake within the knees, ankles, elbows, shoulders i s likely degenerative. CT scan also shows lucency within the spinal canal adjacent to the origin of t he left S1 nerve root which may represent a disc herniation. IMPRESSION: No evident fracture on bone scan. Disc herniation L5-S1 as noted on CT, correlate for left S1 radicul opathy, spinal curvature degenerative disc changes are present. Difficult to exclude hairline fractur e on CT along the left hip although there is no corresponding uptake seen on bone scan. There may be an underlying synovitis at the right hip.
--- NOTE | 2020-07-15 14:36 | P.PN ---
Progress Note - Text Progress Note Date: 07/15/20 Bone scan has been reviewed. No evidence of fracture of the RIGHT hip on bone scan. Some synovitis noted. Question of L hip fracture, but no uptake on NM scan suggesting no fracture here either. Patient is stable for discharge per ortho home with crutches or a walker, protected weight bearing and follow up in office in 1 week for talks of hip injection. I spoke with pt and about this and they are comfortable with this plan.
--- NOTE | 2020-07-15 14:52 | P.PN ---
<Lenny Guillory - Last Filed: 07/15/20 15:46> Subjective Progress Note Date: 07/15/20 Hospital course: Patient is a 59-year-old male with a past medical history of CAD with recent l eft heart cath resulting in stent placement and discharge home with LifeVest along with dual therapy with aspirin and Effient, ventricular tachycardia, hypertension, and hyperlipidemia. He presented to the hospital on 07/11/20 with a chief complaint of right hip pain/back pain. It and fully evaluated resulting in admission under our services with consultation to orthopedic surgery and cardiology. Chest x-ray was completed negative for acute cardiopulmonary process. EKG showing normal sinus rhythm at 73 bpm with a prolonged QT/QTC of 436/480 ms otherwise normal findings. Thoracic aorta CT showing bullous emphysema with no acute pulmonary process. CT abdomen and pelvis showing indeterminate hypodense lesion in the right kidney and course and interstitial changes correlating with interstitial pneumonitis versus chronic lung disease and right subclavian millimeter nodule too small to characterize recommending six-month follow-up CT. X-ray right hip negative for acute process or fracture. X-ray lumbar spine revealing moderately severe multilevel spondylitic changes with no reported fractures. CT right hip without contrast revealing no fractures or dislocation with mild to moderate axial joint space loss and a set of Boehler's spurring. Nuclear bone scan of right hip revealing no evidence of acute fracture of right hip, showing disc herniation at L5 through S1, possible hairline fracture along the left hip and underlying synovitis at the right hip. Physical exam: Patient seen and fully evaluated at bedside. Patient reports uncontrolled pain of his right hip and was given additional dose of pain medication Dilaudid 1 mg. Patient preparing to go down for nuclear bone scan of right hip. He denied having any further complaints or needs including headache, chest pain, palpitations, shortness of breath, or experiencing any n umbness/tingling/weakness in his extremities. General: non toxic, no distress, appears at stated age Derm: warm, dry Head: atraumatic, normocephalic, symmetric Eyes: EOMI, no lid lag, anicteric sclera Mouth: no lip lesion, mucus membranes moist Cardiovascular: S1-S2 normal with regular rate and rhythm. No murmurs, gallops, or rubs. Posterior tibial pulses palpated bilaterally, cap refill less than 2 seconds. Lungs: CTA bilateral, no rhonchi, no rales , no accessory muscle use Abdominal: soft, nontender to palpation, no guarding, no appreciable organomegaly Ext: no gross muscle atrophy, no edema, no contractures Neuro: CN II-XI grossly intact, no focal neuro deficits Psych: Alert, oriented, appropriate affect Plan of care: Right hip synovitis -Nuclear bone scan of right hip revealing no evidence of acute fracture of right hip, showing disc herniation at L5 through S1, possible hairline fracture along the left hip and underlying synovitis at the right hip. -Symptomatic care and pain management. -Orthopedic surgery following, recommending patient to follow-up outpatient in office. -PT/OT to further evaluate as patient continues to have difficulty ambulating at this time. Subsequent finding on imaging revealing indeterminate hypodense lesion in the right kidney and right subclavian millimeter nodule -Will need to follow-up outpatient with PCP upon discharge for additional tests/further monitoring. History of CAD with LifeVest and place -Patient to wear LifeVest at all times and to continue daily medication regimen with aspirin, atorvastatin, Lasix, lisinopril, metoprolol, Effient, and as needed sublingual nitroglycerin. Hypertension -Continue daily medication management with lisinopril and metoprolol. Hyperlipidemia -Continue daily home medication regimen with atorvastatin. CODE STATUS: Full code DVT prophylaxis: Heparin Discussed with: Patient and RN Anticipated discharge date: Tomorrow pending further evaluation by PT/OT Anticipated discharge place: Home with possible home care, patient and currently declining home care services. A total of 45 minutes was spent on the care of this complex patient more than 50% of the time was spent in counseling and care coordination. Objective - Vital Signs Vital signs: Vital Signs Temp 97.4 F L 07/15/20 07:00 Pulse 66 07/15/20 08:00 Resp 16 07/15/20 14:00 BP 146/87 07/15/20 07:00 Pulse Ox 97 07/15/20 07:00 Intake & Output 07/14/20 07/15/20 07/15/20 18:59 06:59 18:59 Intake Total 490 240 500 Output Total 1400 250 250 Balance -910 -10 250 Intake: Oral 490 240 500 Output: Urine 1400 250 250 Other: Voiding Method Urinal # Voids 1 2 - Labs CBC & Chem 7: 07/11/20 21:12 07/11/20 21:12 <WendiJosie A - Last Filed: 07/15/20 21:55> Objective - Vital Signs Vital signs: Vital Signs Temp 97.5 F L 07/15/20 20:00 Pulse 60 07/15/20 20:00 Resp 16 07/15/20 20:00 BP 122/78 07/15/20 20:00 Pulse Ox 96 07/15/20 20:00 Intake & Output 07/15/20 07/15/20 07/16/20 06:59 18:59 06:59 Intake Total 240 900 Output Total 250 1050 300 Balance -10 -150 -300 Intake: Oral 240 900 Output: Urine 250 1050 300 Other: Voiding Method Urinal # Voids 1 1 - Labs CBC & Chem 7: 07/11/20 21:12 07/11/20 21:12 Assessment and Plan Assessment: I discussed the care with Lenny Guillory NP and reviewed the findings and plan as documented in the note above. I did not physically speak with or examine the patient on this date.
[2020-07-15] MEDS: ATORVASTATIN 80 MG TAB PO SCH (19:28)
[2020-07-16] MEDS: HYDROcodone/APAP 5-325MG 1 EACH TAB PO PRN ×2 (05:58→12:17)
[2020-07-16 07:39] VITALS: BP 141/82; PULSE 74; RESP 15; TEMP 98
[2020-07-16] MEDS: SYMBICORT 80-4.5 MCG INHALER INHALATION SCH (08:09)
[2020-07-16] MEDS: GABAPENTIN 300 MG CAP PO SCH (08:17)
[2020-07-16] MEDS: METOPROLOL SUCCINATE (ER) 50 MG TAB.ER.24H PO SCH (08:17)
[2020-07-16] MEDS: FOLIC ACID 1 MG TAB PO SCH (08:17)
[2020-07-16] MEDS: FUROSEMIDE 40 MG TAB PO SCH (08:17)
[2020-07-16] MEDS: PANTOPRAZOLE 40 MG TABLET PO SCH (08:17)
[2020-07-16] MEDS: ASPIRIN 81 MG PO SCH (08:17)
[2020-07-16] MEDS: methylPREDNISolone 4 MG TAB TAPER PO SCH (08:17)
[2020-07-16] MEDS: PRASUGREL 10 MG TAB PO SCH (08:18)
[2020-07-16] MEDS: HEPARIN SODIUM,PORCINE/PF 5,000 UNIT/0.5 ML SYRINGE SQ SCH (08:18)
[2020-07-16] MEDS: Tofacitinib Citrate [Xeljanz Xr] 11 MG Tab.Er.24h PO SCH (08:20)
[2020-07-16] MEDS: CYCLOBENZAPRINE 5 MG TAB PO PRN (08:23)
--- NOTE | 2020-07-16 13:33 | P.DS ---
<Lenny Guillory - Last Filed: 07/16/20 13:08> Providers Expected date of discharge: 07/16/20 Hospital Course: Discharge Diagnosis: Right hip synovitis Subsequent finding on imaging revealing indeterminate hypodense lesion in the right kidney and right subclavian millimeter nodule will need to follow-up outpatient with her primary care provider for additional/repeat testing. History of CAD with LifeVest and place Hypertension Hyperlipidemia Hospital Course: Patient is a 59-year-old male with a past medical history of CAD with recent left heart cath resulting in stent placement and discharge home with LifeVest along with dual therapy with aspirin and Effient, ventricular tachycardia, hypertension, and hyperlipidemia. He presented to the hospital on 07/11/20 with a chief complaint of right hip pain/back pain. It and fully evaluated resulting in admission under our services with consultation to orthopedic surgery and cardiology. Chest x-ray was completed negative for acute cardiopulmonary pro cess. EKG showing normal sinus rhythm at 73 bpm with a prolonged QT/QTC of 436/480 ms otherwise normal findings. Thoracic aorta CT showing bullous emphysema with no acute pulmonary process. CT abdomen and pelvis showing indeterminate hypodense lesion in the right kidney and course and interstitial changes correlating with interstitial pneumonitis versus chronic lung disease and right subclavian millimeter nodule too small to characterize recommending six-month follow-up CT. X-ray right hip negative for acute process or fracture. X-ray lumbar spine revealing moderately severe multilevel spondylitic changes with no reported fractures. CT right hip without contrast revealing no fractures or dislocation with mild to moderate axial joint space loss and a set of Boehler's spurring. Nuclear bone scan of right hip revealing no evidence of acute fracture of right hip, showing disc herniation at L5 through S1, possible hairline fracture along the left hip and underlying synovitis at the right hip. Patient was seen and fully evaluated by PT/OT, was able to ambulate with walker. Patient instructed he will need to follow up outpatient with [facility] cardiology as scheduled and follow with Dr. Del Real for further treatment and/or testing of synovitis of right hip. Lastly patient had subsequent finding on imaging with CT abdomen and pelvis revealing indeterminate hypodense lesion in his right kidney and his right-sided subclavian millimeter nodule too small to characterize, radiologist recommending six-month follow-up which will need to be completed with primary care provider. Physical exam: Patient seen and fully evaluated at bedside. Patient reports pain is currently "better controlled". Patient was up and ambulating with PT/OT using walker. Patient denies having any headache, lightheadedness, dizziness, chest pain, palpitations, or shortness of breath. He should also denies experiencing any numbness/tingling or weakness in lower extremities. Vital signs reviewed and stable. General: non toxic, no distress, appears at stated age Derm: warm, dry Head: atraumatic, normocephalic, symmetric Eyes: EOMI, no lid lag, anicteric sclera Mouth: no lip lesion, mucus membranes moist Cardiovascular: S1-S2 normal with regular rate and rhythm. No murmurs, gallops, or rubs. Posterior tibial pulses palpated bilaterally, cap refill less than 2 seconds. Lungs: CTA bilateral, no rhonchi, no rales , no accessory muscle use Abdominal: soft, nontender to palpation, no guarding, no appreciable organomegaly Ext: no gross muscle atrophy, no edema, no contractures. Patient has pain with movement of right hip. Neuro: CN II-XI grossly intact, no focal neuro deficits Psych: Alert, oriented, appropriate affect A total of 45 minutes of time were spent preparing this complex discharge summary. Patient Condition at Discharge: Stable Plan - Discharge Summary New Discharge Prescriptions: New methylPREDNISolone Dose Pack [Medrol Dose Pack] 4 mg PO DIRECTED #21 package HYDROcodone/APAP 10-325MG [[place] 10-325] 1 tab PO Q4HR PRN 3 Days #18 tab PRN Reason: Moderate To Severe Pain Cyclobenzaprine [Flexeril] 5 mg PO TID PRN #15 tab PRN Reason: Muscle Spasm Continue Omeprazole 20 mg PO DAILY Aspirin EC [Ecotrin Low Dose] 81 mg PO DAILY lisinopriL [Zestril] 2.5 mg PO DAILY PRN PRN Reason: Blood Pressure - High Budesonide/Formoterol Fumarate [Symbicort 80-4.5 Mcg Inhaler] 1 puff INHALATION RT-BID Prasugrel [Effient] 10 mg PO DAILY Albuterol Sulfate [Proair Hfa] 1 - 2 puff INHALATION RT-Q6H PRN PRN Reason: Shortness Of Breath Tofacitinib Citrate [Xeljanz Xr] 11 mg PO DAILY Metoprolol Succinate [Toprol XL] 50 mg PO DAILY Ergocalciferol [Vitamin D2 (1250 Mcg = 68016 Iu)] 1,250 mcg PO MO Atorvastatin [Lipitor] 80 mg PO HS Furosemide [Lasix] 40 mg PO DAILY Folic Acid 1 mg PO DAILY Discharge Medication List Albuterol Sulfate [Proair Hfa] 1 - 2 puff INHALATION RT-Q6H PRN 07/11/20 [History] Aspirin EC [Ecotrin Low Dose] 81 mg PO DAILY 07/11/20 [History] Atorvastatin [Lipitor] 80 mg PO HS 07/11/20 [History] Budesonide/Formoterol Fumarate [Symbicort 80-4.5 Mcg Inhaler] 1 puff INHALATION RT-BID 07/11/20 [History] Ergocalciferol [Vitamin D2 (1250 Mcg = 84497 Iu)] 1,250 mcg PO MO 07/11/20 [History] Folic Acid 1 mg PO DAILY 07/11/20 [History] Furosemide [Lasix] 40 mg PO DAILY 07/11/20 [History] Metoprolol Succinate [Toprol XL] 50 mg PO DAILY 07/11/20 [History] Omeprazole 20 mg PO DAILY 07/11/20 [History] Prasugrel [Effient] 10 mg PO DAILY 07/11/20 [History] Tofacitinib Citrate [Xeljanz Xr] 11 mg PO DAILY 07/11/20 [History] lisinopriL [Zestril] 2.5 mg PO DAILY PRN 07/11/20 [History] Cyclobenzaprine [Flexeril] 5 mg PO TID PRN #15 tab 07/14/20 [Rx] methylPREDNISolone Dose Pack [Medrol Dose Pack] 4 mg PO DIRECTED #21 package 07/14/20 [Rx] HYDROcodone/APAP 10-325MG [[place] 10-325] 1 tab PO Q4HR PRN 3 Days #18 tab 07/16/20 [Rx] Follow up Appointment(s)/Referral(s): Nonstaff,Physician [Primary Care Provider] - 1-2 days Cholo Del Real DO [Doctor of Osteopathic Medicine] - 07/20/20 3:30 pm (Please arrive 15 minutes early to do paperwork ) Patient Instructions/Handouts: Hip Pain (GEN) Activity/Diet/Wound Care/Special Instructions: Activity: As tolerated Diet: Heart healthy diet Special Instructions: Followup with Jonathon Aparicio Fashion Director Non weight bearing right lower extremity Follow-up with Orthopedic Surgery in his office next week. You will need to follow-up with your primary care doctor for a repeat CT as we discussed secondary to small nodule noted on your lung and spot on right kidney. Discharge Disposition: HOME SELF-CARE <Josie Adame - Last Filed: 07/16/20 18:55> Providers Date of admission: 07/14/20 13:00 Attending physician: Anil Harris MD Consults: 07/12/20 11:30 Consult Physician Routine Consulting Provider: Cholo Del Real Consult Reason/Comments: back pain Do you want consulting provider notified?: Yes 07/12/20 11:36 Consult Physician Routine Consulting Provider: Rama Andre Consult Reason/Comments: Troponin elevation Do you want consulting provider notified?: Yes Primary care physician: Physician Nonstaff Hospital Course: I discussed the care with Lenny Guillory NP and reviewed the findings and plan as documented in the note above. I did not physically speak with or examine the patient on this date.
== END 2020-07-16 13:40 | disposition home or self-care (01) | DRG 558 ==
LOC: EC 20:00 → 6NMEDSUR 23:17 → OBSVTOIN 07-14 13:00
PROVIDERS: ADMIT Internal Medicine; ATTEND Internal Medicine
DX: M65.9 Synovitis and tenosynovitis, unspecified (principal); I47.2 Ventricular tachycardia; I50.22 Chronic systolic (congestive) heart failure; I11.0 Hypertensive heart disease with heart failure; J43.9 Emphysema, unspecified; M06.9 Rheumatoid arthritis, unspecified; Z20.822 Contact with and (suspected) exposure to COVID-19; M16.0 Bilateral primary osteoarthritis of hip; I25.10 Atherosclerotic heart disease of native coronary artery without angina pectoris; M47.816 Spondylosis without myelopathy or radiculopathy, lumbar region; D64.9 Anemia, unspecified; N28.9 Disorder of kidney and ureter, unspecified; E78.5 Hyperlipidemia, unspecified; R77.8 Other specified abnormalities of plasma proteins; Z79.82 Long term (current) use of aspirin; Z79.51 Long term (current) use of inhaled steroids; Z79.02 Long term (current) use of antithrombotics/antiplatelets; Z79.899 Other long term (current) drug therapy; Z87.891 Personal history of nicotine dependence; Z95.5 Presence of coronary angioplasty implant and graft; Z95.0 Presence of cardiac pacemaker
CPT/HCPCS: 36415; 71046; 71275; 72100; 73502; 74174; 74176; 78306; 80053; 80061; 81003; 82550; 83605; 83735; 84145; 84484; 85025; 85610; 85652; 85730; 86140; 87635; 93005; 94640; 94760; 96361; 96372; 96374; 96376; 99285